=== PATIENT | female | born 1970 | race Caucasian/White ===

== ENCOUNTER 2020-02-01 10:56 | Emergency (ER) | payer OTHER ==
[~2020-02-01] VITALS: Ht 172.7 cm; Wt 61.2 kg
[2020-02-01 11:25] LABS: ABSOLUTE LYMPHOCYTES 1.1 thou/uL (0.8-5.3); ABSOLUTE MONOCYTES 0.5 thou/uL (0.0-1.2); ABSOLUTE NEUTROPHILS 6.2 thou/uL (1.6-8.1); BASOPHILS 0.5 %; EOSINOPHILS 0.5 %; HEMATOCRIT 41.2 % (37.0-47.0); HEMOGLOBIN 13.7 gm/dL (12.0-15.0); LYMPHOCYTES 13.9 %; MCH 27.5 pg (26.0-34.0); MCHC 33.2 g/dL (28.0-37.0); MONOCYTES 6.2 %; MPV 7.2 fl. (7.2-11.1); NUCLEATED RBCS 0 /100WBC; PLATELET COUNT* 266 thou/uL (150-400); POLYS 78.9 %; RBC 4.96 mil/uL (4.20-5.00); WBC 7.8 thou/uL (4.0-11.0)
[2020-02-01 11:27] LABS: CALCIUM 8.9 mg/dL (8.5-10.1); CREATININE 1.3 mg/dL (0.6-1.3); POTASSIUM 3.9 mmol/L (3.5-5.1)
[2020-02-01 11:40] LABS: ALBUMIN 3.9 g/dL (3.4-5.0); CK-MB MASS 0.8 ng/mL (<0.5-3.6); MAGNESIUM 1.8 mg/dL (1.8-2.4); TOTAL BILIRUBIN 0.3 mg/dL (<0.1-1.0); TOTAL PROTEIN 7.8 g/dL (6.4-8.2)
[2020-02-01] MEDS ORDERED: XANAX 0.5 MG0.5 MG PO (12:02)
[2020-02-01 12:05] VITALS: BP 123/81
--- NOTE | 2020-02-02 11:47 | EKG ---
[place] [address] ELECTROCARDIOGRAM REPORT Name: CATIA BASHIR Room: [facility]#: [id number] Admission: 02/01/20 Attend Phys: Discharge: 02/01/20 Date of : 72 Date of Service: 02/01/20 1101 Report #: [id number] THIS REPORT FOR: //name// [facility] ED Test Date: 2020-02-01 Test Time: 11:01:40 Pat Name: CATIA BASHIR Department: Room: Gender: Maitre D': [place] : 1970 Requested By: Michael Jiménez Order Number: [id number] MD: Uriel Dozier Measurements Intervals [place] Rate: 83 P: 77 [place]: 141 QRS: 100 QRSD: 93 T: 41 QT: 365 QTc: 429 Interpretive Statements Sinus rhythm Right axis deviation No previous ECG available for comparison Electronically Signed On 02-02-2020 11:47:06 CDT by Uriel Dozier [email or web address] <ELECTRONICALLY SIGNED> By: Uriel Dozier MD, [facility] 02/02/20 1147 00 00 Uriel Dozier MD, FACC /EPI
== END 2020-02-01 12:06 | disposition home or self-care (01) ==
LOC: M.ERS 10:56
PROVIDERS: Family Medicine
DX: R07.89 Other chest pain (principal); M25.511 Pain in right shoulder